=== PATIENT | female | born 1955 | race American Indian/Alaskan Native ===

== ENCOUNTER 2017-05-21 09:44 | Emergency (ER) | payer MEDICARE ==
--- NOTE | 2017-05-21 11:39 | XRay Report ---
CHEST XRAY, 2 VIEWS: History: Cough. Findings: There is mild cardiomegaly. 2-lead pacemaker device is in position. Pulmonary vessels are within normal limits. The lungs are clear and fully expanded. No infiltrate, pleural effusion or pneumothorax. Normal thoracic cage. IMPRESSION: Mild cardiomegaly.
--- NOTE | 2017-05-21 13:04 | Emergency Department Report ---
ED ENT HPI - General Chief complaint: Earache Stated complaint: EARACHE/COUGHING Time Seen by Provider: 05/21/17 11:20 Source: patient, family Mode of arrival: Ambulatory Limitations: No Limitations - History of Present Illness Initial comments: This is a 62-year-old female nontoxic, well nourished in appearance, no acute signs of distress presents to the ED with c/o of right earache, wheezing, and productive cough x3 weeks. Patient describes ear pain as aching with level of 8/ 10. Patient denies any trauma to the region. Patient hearing loss or hearing changes. Denies mastoid tenderness. Denies any recent travels, long car rides, or recent hospital stays. Patient denies any chest pain, headache, nausea, vomiting, shortness of breathe, difficulty breathing, stiff neck, hemoptysis, calf pain, calf tenderness, fever, chills or back pain or abdominal pain. Patient states allergies to PCN. PMH includes heart failure which patient stated gets SOB only during walking and is chronic. MD complaint: ear pain, other (cough with wheezing) -: week(s) (3) Location: R ear Severity: mild Severity scale (0 -10): 8 Quality: aching Consistency: constant Improves with: none Worsens with: none Associated Symptoms: cough. denies: fever, gum swelling, toothache, pain with swallowing, sore throat, tinnitus, hearing loss, discharge from ear, rhinorrhea - Related Data Previous Rx's Medication Instructions Recorded Last Taken Type ALBUTEROL Inhaler [ProAir HFA 2 puff IH QID PRN #1 inhalation 05/21/17 Unknown Rx Inhaler] Azithromycin [Zithromax TAB] 250 mg PO QDAY #6 tablet 05/21/17 Unknown Rx Benzonatate [Tessalon Perle] 100 mg PO Q8H #20 capsule 05/21/17 Unknown Rx Ciprofloxacin 0.2%(Nf) 4 drops AD Q8H #1 bottle 05/21/17 Unknown Rx [Ciprofloxacin Otic 0.2%(Nf)] predniSONE [Deltasone] 40 mg PO QDAY #5 tab 05/21/17 Unknown Rx Allergies Allergy/AdvReac Type Severity Reaction Status Date / Time Penicillins Allergy Rash Verified 05/21/17 10:49 ED Dental HPI - General Chief complaint: Earache Stated complaint: EARACHE/COUGHING Time Seen by Provider: 05/21/17 11:20 Source: patient, family Mode of arrival: Ambulatory Limitations: No Limitations - Related Data Previous Rx's Medication Instructions Recorded Last Taken Type ALBUTEROL Inhaler [ProAir HFA 2 puff IH QID PRN #1 inhalation 05/21/17 Unknown Rx Inhaler] Azithromycin [Zithromax TAB] 250 mg PO QDAY #6 tablet 05/21/17 Unknown Rx Benzonatate [Tessalon Perle] 100 mg PO Q8H #20 capsule 05/21/17 Unknown Rx Ciprofloxacin 0.2%(Nf) 4 drops AD Q8H #1 bottle 05/21/17 Unknown Rx [Ciprofloxacin Otic 0.2%(Nf)] predniSONE [Deltasone] 40 mg PO QDAY #5 tab 05/21/17 Unknown Rx Allergies Allergy/AdvReac Type Severity Reaction Status Date / Time Penicillins Allergy Rash Verified 05/21/17 10:49 ED Review of Systems ROS: Stated complaint: EARACHE/COUGHING Other details as noted in HPI Constitutional: denies: chills, fever Eyes: denies: eye pain, eye discharge, vision change ENT: ear pain. denies: throat pain Respiratory: cough, wheezing. denies: shortness of breath Cardiovascular: denies: chest pain, palpitations Endocrine: no symptoms reported Gastrointestinal: denies: abdominal pain, nausea, diarrhea Genitourinary: denies: urgency, dysuria, discharge Musculoskeletal: denies: back pain, joint swelling, arthralgia Skin: denies: rash, lesions Neurological: denies: headache, weakness, paresthesias Psychiatric: denies: anxiety, depression Hematological/Lymphatic: denies: easy bleeding, easy bruising ED Past Medical Hx - Past Medical History Previous Medical History?: Yes Hx Congestive Heart Failure: Yes Additional medical history: AICD - Surgical History Additional Surgical History: AICD/Defib - Social History Smoking Status: Current Every Day Smoker Substance Use Type: Alcohol - Medications Home Medications: Home Medications Medication Instructions Recorded Confirmed Last Taken Type ALBUTEROL Inhaler [ProAir HFA 2 puff IH QID PRN #1 inhalation 05/21/17 Unknown Rx Inhaler] Azithromycin [Zithromax TAB] 250 mg PO QDAY #6 tablet 05/21/17 Unknown Rx Benzonatate [Tessalon Perle] 100 mg PO Q8H #20 capsule 05/21/17 Unknown Rx Ciprofloxacin 0.2%(Nf) 4 drops AD Q8H #1 bottle 05/21/17 Unknown Rx [Ciprofloxacin Otic 0.2%(Nf)] predniSONE [Deltasone] 40 mg PO QDAY #5 tab 05/21/17 Unknown Rx ED Physical Exam - General Limitations: No Limitations General appearance: alert, in no apparent distress - Head Head exam: Present: atraumatic, normocephalic, normal inspection - Eye Eye exam: Present: normal appearance, PERRL, EOMI. Absent: scleral icterus, conjunctival injection, nystagmus, periorbital swelling, periorbital tenderness Pupils: Present: normal accommodation - ENT ENT exam: Present: normal exam, normal orophraynx, mucous membranes moist - Expanded ENT Exam Expanded Ear exam: Present: normal external inspection TM/Canal exam: Canal Discharge: Left TM (clear/yellow colored) Mouth exam: Present: normal external inspection, tongue normal. Absent: drooling, trismus, muffled voice, tongue elevation, laceration Teeth exam: Present: normal inspection Throat exam: Positive: normal inspection, other. Negative: tonsillar erythema, tonsillomegaly, tonsillar exudate, R peritonsillar mass, L peritonsillar mass - Neck Neck exam: Present: normal inspection, full ROM. Absent: tenderness, meningismus, lymphadenopathy, thyromegaly - Respiratory Respiratory exam: Present: normal lung sounds bilaterally, wheezes (bilateral upper and lower lobes). Absent: respiratory distress, rales, rhonchi, stridor, chest wall tenderness, accessory muscle use, decreased breath sounds, prolonged expiratory - Cardiovascular Cardiovascular Exam: Present: regular rate, normal rhythm, normal heart sounds. Absent: bradycardia, tachycardia, irregular rhythm, systolic murmur, diastolic murmur, rubs, gallop - GI/Abdominal GI/Abdominal exam: Present: soft, normal bowel sounds. Absent: distended, tenderness, guarding, rebound, rigid, diminished bowel sounds - Rectal Rectal exam: Present: deferred - Extremities Exam Extremities exam: Present: normal inspection, full ROM, normal capillary refill. Absent: tenderness, pedal edema, joint swelling, calf tenderness - Back Exam Back exam: Present: normal inspection, full ROM. Absent: tenderness, CVA tenderness (R), CVA tenderness (L), muscle spasm, paraspinal tenderness, vertebral tenderness, rash noted - Neurological Exam Neurological exam: Present: alert, oriented X3, CN II-XII intact, normal gait, reflexes normal - Psychiatric Psychiatric exam: Present: normal affect, normal mood - Skin Skin exam: Present: warm, dry, intact, normal color. Absent: rash - Other Other exam information: Negative mastoid tenderness. Clear/yellow colored drainge from the ear canal and positive tragus tenderness. ED Course Vital Signs 05/21/17 10:58 Temperature 99.0 F Pulse Rate 104 H Respiratory 18 Rate Blood Pressure 151/90 [Left] O2 Sat by Pulse 98 Oximetry - Reevaluation(s) Reevaluation #1: 05/21/17 13:18 Patient is speaking in full sentences with no signs of distress noted. ED Medical Decision Making - Medical Decision Making This is a 62-year-old female that presents with upper respiratory infection and right otitis externa. Patient is stable and was examined by me. Chest x-ray has been obtained and the radiologist with normal exam. Negative influenza swab. Negative mastoid tenderness. Patient notified of x-ray results with no questions noted by the patient. Vitals are stable. Patient received DuoNeb and Solu-Medrol, and Tessalon Perles and ED symptoms of wheezing and cough has subsided. Patient discharged with azithromycin and ciprofloxacin opth drops. Patient was instructed Follow-up with a primary care doctor in 3-5 days or if symptoms worsen and continue return to emergency room as soon as possible. At time time of discharge, the patient does not seem toxic or ill in appearance. No acute signs of distress noted. Patient agrees to discharge treatment plan of care. No further questions noted by the patient. Critical care attestation.: If time is entered above; I have spent that time in minutes in the direct care of this critically ill patient, excluding procedure time. ED Disposition Clinical Impression: Upper respiratory infection Qualifiers: URI type: unspecified URI Qualified Code(s): J06.9 - Acute upper respiratory infection, unspecified Otitis externa Qualifiers: Otitis externa type: unspecified type Chronicity: acute Laterality: right Qualified Code(s): H60.501 - Unspecified acute noninfective otitis externa, right ear Disposition: TO HOME OR SELFCARE Is pt being admited?: No Does the pt Need Aspirin: No Condition: Stable Instructions: Albuterol (By breathing), Prednisone (By mouth), Azithromycin ( By mouth), Ciprofloxacin (Into the ear), Otitis Externa (ED) Additional Instructions: Follow-up with a primary care doctor in 3-5 days or if symptoms worsen and continue return to emergency room as soon as possible. Prescriptions: ALBUTEROL Inhaler [ProAir HFA Inhaler] 2 puff IH QID PRN #1 inhalation PRN Reason: Shortness Of Breath Azithromycin [Zithromax TAB] 250 mg PO QDAY #6 tablet Benzonatate [Tessalon Perle] 100 mg PO Q8H #20 capsule Ciprofloxacin 0.2%(Nf) [Ciprofloxacin Otic 0.2%(Nf)] 4 drops AD Q8H #1 bottle predniSONE [Deltasone] 40 mg PO QDAY #5 tab Referrals: PAMELLA DUMONT MD [Primary Care Provider] - 3-5 Days PRIMARY CARE, [Referring] - 3-5 Days [facility] [Outside] - 3-5 Days [facility] [Outside] - 3-5 Days Forms: Work/School Release Form(ED)
[2017-05-21] MEDS ORDERED: TESSALON PERLES PO ONE (13:20)
[2017-05-21] MEDS ORDERED: DUONEB *Not for PRN Use IH ONE (14:05)
[2017-05-21 15:01] VITALS: BP 174/83
[2017-05-21] MEDS ORDERED: DUONEB *Not for PRN Use IH SCH (16:00)
== END 2017-05-21 15:41 | disposition home or self-care (01) ==
LOC: ED 09:44
DX: H60.501 Unspecified acute noninfective otitis externa, right ear (principal); J06.9 Acute upper respiratory infection, unspecified; I50.9 Heart failure, unspecified; Z88.0 Allergy status to penicillin
CPT/HCPCS: 71046; 96372; 99283; J2930

== ENCOUNTER 2020-09-14 10:45 | Outpatient (CLI) | payer MEDICARE ==
--- NOTE | 2020-09-14 15:56 | Mammography Report ---
DIGITAL SCREENING MAMMOGRAM WITH CAD, 09/14/2020 CLINICAL INFORMATION / INDICATION: Routine screening TECHNIQUE: Digital bilateral 2D mammography was obtained in the craniocaudal and mediolateral obliqu e projections. This examination was interpreted with the benefit of Computer-Aided Detection analysis . COMPARISON: None available FINDINGS: Breast Density: There are scattered areas of fibroglandular density. No dominant mass, suspicious calcifications, or architectural distortion in the right breast. Pacer is seen on the left. Benign-appearing bilateral calcifications are noted. In the posterior depth of the left breast on cc view, an irregular density is seen measuring 3.5 cm i n diameter with architectural distortion. This probably is in the lower portion of the breast on MLO view. IMPRESSION: Asymmetric density with possible distortion on the left Follow up recommendation: Left spot compression views and ultrasound if needed BI-RADS Category 0: Incomplete. Needs additional imaging evaluation and/or prior mammograms for martin avery. A "normal" or negative report should not discourage follow up or biopsy of a clinically significant f inding. A written summary of these findings will be mailed to the patient. The patient will be entered into a mammography reporting system which will generate a reminder letter for the patient's next appointmen t at the appropriate interval. The [employer] recommends yearly mammograms starting at age 40 and continuing as l sue as a woman is in good health. Breast MRI is recommended for women with an approximate 20-25% or greater lifetime risk of breast cancer, including women with a strong family history of breast or ova venita cancer or who have been treated for Hodgkin's disease. Signer Name: Lan Gibson MD Signed: 09/14/2020 3:51 PM Workstation Name: [id number]
== END 2020-09-14 10:46 | disposition home or self-care (01) ==
LOC: SPVWC 10:45
PROVIDERS: ATTEND Nurse Practitioner
DX: Z12.31 Encounter for screening mammogram for malignant neoplasm of breast (principal)
CPT/HCPCS: 77067